=== PATIENT | female | born 1975 | race Caucasian/White ===

== ENCOUNTER → 2017-12-26 | Outpatient (CLI) | payer OTHER ==
--- NOTE | 2018-01-01 14:58 | SLEEP ---
[address] [address] SLEEP STUDY REPORT Name: ROBBIN WHELAN Room: [facility]#: [id number] Admission: 12/26/17 Attend Phys: Samantha. JEFFRY Lin Discharge: Date of : 71 Report #: [id number] THIS REPORT FOR: //name// CC: Larissa Perez This study has been reviewed in its entirety by a board certified sleep specialist DATE OF SERVICE: 12/27/2017 ATTENDING PHYSICIAN: Dr. Shannon Perez. The patient is a 42-year-old who underwent a home sleep study performed at [facility]. Total recording time was 543 minutes. During the night study, the patient had 6 central apneas, 182 obstructive apneas, no mixed apneas and 115 hypopneas. The patient's apnea-hypopnea index for the entire night was 33.5 per hour with a supine index of 33.5 per hour as well. Review of nocturnal oximetry study revealed an average oxygen saturation of 91% with a lowest of 76%. 109 minutes were spent at an oxygen saturation of less than 90%. EKG monitoring revealed a mean heart rate of 72 beats per minute with a maximum of 122 beats per minute. IMPRESSION: 1. Severe sleep apnea-hypopnea syndrome at an apnea-hypopnea index of 33.5 per hour. 2. Nocturnal hypoxia secondary to obstructive sleep apnea. RECOMMENDATIONS: 1. The patient would benefit from in-lab CPAP titration study. 2. Once optimum CPAP pressure is achieved, then follow up in 4-6 weeks to assess compliance with CPAP and to document clinical improvement. 3. Avoid HAND III CUTTER depressants. Weight loss is advised. 4. Caution regarding driving until symptoms of sleep apnea resolve with the above recommendations. <ELECTRONICALLY SIGNED> By: Jorge Wall MD 01/01/18 [id number] Wall MD /nt
== END ==
LOC: M.SLEEPLAB 09:00 → M.RAD 10:20
DX: Z12.31 Encounter for screening mammogram for malignant neoplasm of breast (principal); G47.33 Obstructive sleep apnea (adult) (pediatric)

== ENCOUNTER → 2018-01-22 | Outpatient (CLI) | payer OTHER ==
--- NOTE | 2018-01-24 13:44 | SLEEP ---
[address] [address] SLEEP STUDY REPORT Name: ROBBIN WHELAN Room: [facility]#: [id number] Admission: 01/22/18 Attend Phys: Samantha. JEFFRY Lin Discharge: Date of : 71 Report #: [id number] THIS REPORT FOR: //name// CC: Larissa Perez This study has been reviewed in its entirety by a board certified sleep specialist DATE OF SERVICE: 01/22/2018 SLEEP STUDY DATE OF STUDY: 01/22/2018. ATTENDING PHYSICIAN: Dr. Shannon Perez. The patient is 42 years old who had a home sleep study and was found to have severe KORINA at an AHI of 33 per hour. The patient to return for in-lab CPAP titration study performed at [facility]. During the night study, the patient spent 433 minutes in bed and slept for 306 minutes, with a sleep efficiency of 70%, which was low. Sleep latency was 26 minutes with a REM latency of 107 minutes. Overall, sleep architecture showed normal stage I sleep, slightly increased stage 2 sleep, normal slow wave and normal REM sleep. EKG monitoring revealed an average heart rate of 65 beats per minute. No sustained arrhythmias were observed. Normal sinus rhythm. PLMS were seen at an index of 1 per hour and only 0.4 per hour caused EEG arousals. The patient was started on CPAP at a pressure of 5 cm water and titrated to a maximum pressure of 10 cm of water. At the final pressure, the patient slept for 63 minutes. The patient REM as well as supine sleep. The patient's AHI was reduced to only 1 per hour and oxygen saturations remained above 91%. IMPRESSION: 1. Severe sleep apnea diagnosed by home sleep study. 2. No clinically significant periodic limb movement of sleep. RECOMMENDATIONS: 1. CPAP at 10 cm water completely eliminated the patient's sleep apnea and should be used on a nightly basis. 1. Follow up in 4-6 weeks to assess compliance with CPAP [place] [address] SLEEP STUDY REPORT Name: ROBBIN WHELAN Room: [facility]#: [id number] Admission: 01/22/18 Attend Phys: Samantha. JEFFRY Lin Discharge: Date of : 71 Report #: [id number] clinical improvement.0 2. Avoid HIGH VOLTAGE [employer]LECTRICIAN depressants. 3. Weight loss is advised. 4. Caution regarding driving until symptoms of sleep apnea resolve with the use of CPAP. <ELECTRONICALLY SIGNED> By: Jorge Wall MD 01/24/18 1344 [id number] Wall MD /nt
== END ==
LOC: M.SLEEPLAB 20:50
DX: G47.33 Obstructive sleep apnea (adult) (pediatric) (principal)